=== PATIENT | male | born 1995 | race Two or more races ===

== ENCOUNTER 2017-04-28 17:54 | Emergency (ER) | payer MEDICAID ==
[2017-04-28] MEDS ORDERED: NS 1,000 ML IV ONE (18:47)
--- NOTE | 2017-04-28 18:57 | EDPHY ---
H & P Time Seen by Provider: 04/28/17 18:44 HPI/ROS: HPI Cough, body aches. 21-year-old male by private vehicle. This patient reports a dry cough with body aches for the last 2-3 days. Denies fever. Has had a mild gradual onset headache that comes and goes. No ill contacts. No other complaints. ROS: Constitutional: No fever, no chills. No weakness. Eyes: No discharge. No changes in vision. ENT: No sore throat. No nasal congestion or rhinorrhea. Respiratory: As above. No shortness of breath. Cardiac: No chest pain, no palpitations. Gastrointestinal: No abdominal pain, no vomiting, no diarrhea. Genitourinary: No hematuria. No dysuria or increased frequency with urination. Musculoskeletal: No back pain. No neck pain. As above. Skin: No rashes. Neurological: No headache. No focal weakness or altered sensation. Past medical history: No significant past medical history. Social history: Nonsmoker. Here by himself. Physical Exam: General Appearance: Alert, no distress. This patient is responding to questions appropriately and in full sentences. This patient appears well- hydrated and well-nourished. Eyes: Pupils equal and round no pallor or injection. No lid edema, erythema or injection. ENT, Mouth: Mucous membranes are moist. The pharyngeal tissues are unremarkable. No edema or swelling. No asymmetry suggestive of abscess. No erythema or exudates. No elevation of the tongue. Respiratory: There are no retractions, lungs are clear to auscultation with good air movement bilaterally. Cardiovascular: Regular rate and rhythm. No murmur. Neurological: Motor sensory function is grossly intact. Cranial nerves are normal. Gait is normal. Skin: Warm and dry, no rashes. Musculoskeletal: Neck is supple and nontender. No pain on flexion of the neck. No cervical or submandibular lymphadenopathy. Extremities are symmetrical. All joints range without pain or impingement. Psychiatric: No agitation. No depression. Database: EKG: Imaging: Chest x-ray PA and lateral; the cardiac mediastinal silhouette is unremarkable. No evidence of infiltrate or pneumothorax. Mild bronchitis. No other acute cardiopulmonary disease process noted. Interpreted by me. Procedures: Emergency department course: Chest x-ray and rapid flu obtained. Vital signs reviewed. 7:30 p.m., patient re-evaluated. Vital signs reviewed. Heart rate is now 93. Results of chest x-ray and flu assays discussed with the patient. He feels comfortable going home and I feel he is safe for discharge. I discussed supportive care and ibuprofen dosing. Follow-up was reviewed. All of his questions were answered. He was discharged from the emergency department in good condition. Differential Diagnosis: The differential diagnosis on this patient includes but is not limited to pneumonia, influenza, other viral upper respiratory syndrome. This represents a partial list of diagnoses considered. These considerations are based on history, physical exam, past history, reassessment and diagnostic testing. Smoking Status: Never smoked Constitutional: Initial Vital Signs Temperature (C) 37.2 C 04/28/17 17:59 Heart Rate 101 H 04/28/17 17:59 Respiratory Rate 16 04/28/17 17:59 Blood Pressure 141/73 H 04/28/17 17:59 O2 Sat (%) 95 04/28/17 17:59 O2 Delivery Mode Room Air Allergies/Adverse Reactions: No Known Allergies Allergy (Verified 04/28/17 17:58) Home Medications: Medication Instructions Recorded NK [No Known Home Meds] 03/31/16 Medical Decision Making - Diagnostics Imaging Results: Imaging Impressions Chest X-Ray 04/28/17 18:48 Impression: No pneumonia. - Data Points Laboratory Results: 04/28/17 04/28/17 18:55 18:55 Influenza A & B (PCR) Pending Influenza A,B Rapid Cancelled Departure - Departure Disposition: Home, Routine, Self-Care Clinical Impression: Viral syndrome, Bronchitis Condition: Good Instructions: Acute Bronchitis (ED), Viral Syndrome (ED) Additional Instructions: Read and follow provided instructions. Follow-up with your primary care physician in 1-2 days for re-evaluation. Ibuprofen dosin mg every 6 hours with meals for the next 3 days only. Return to the emergency department for worsening cough, difficulty breathing, high fever or other serious concerns. Get plenty of rest. Keep well hydrated. Drink lots of fluids. Referrals: NONE *PRIMARY CARE P,. [Primary Care Provider] - As per Instructions
[2017-04-28 19:44] VITALS: BP 107/67; PULSE 99; RESP 18; TEMP 98.8; O2SAT 94
== END 2017-04-28 19:44 | disposition home or self-care (01) ==
DX: J40 Bronchitis, not specified as acute or chronic (principal); B34.9 Viral infection, unspecified

== ENCOUNTER 2017-05-04 07:24 | Emergency (ER) | payer MEDICAID ==
--- NOTE | 2017-05-04 08:24 | EDPHY ---
H & P Time Seen by Provider: 05/04/17 07:43 HPI/ROS: Chief complaint. Sore throat HPI. 21-year-old male sore throat for 2 days. No known exposure. Some congestion and some coughing. Slight fever. Occasional strep in the past. No vomiting or diarrhea. No chest discomfort or shortness of breath. It hurts to swallow. ROS Constitutional. no fever/chills, no weakness Eyes. no problems with vision ENT. Nasal congestion sore throat Cardiovascular. no chest pain Respiratory. Slight cough Abdominal. no abdominal pain, no nausea/vomiting, no diarrhea . no problems urinating MS. no calf pain/swelling, no neck/back pain, no joint pain Skin. no rash Lymph. no swollen glands Neuro. no headache, no dizziness, no difficulty walking or with speech Past Medical/Surgical History: Healthy Social History: Single, nonsmoker, no alcohol Smoking Status: Never smoked Physical Exam: General Appearance: Alert well-developed male mild distress vital signs stable Eyes: Pupils equal and round no pallor or injection. ENT, tympanic membranes are normal. Pharynx injected with exudate bilaterally. No evidence for peritonsillar abscess. There is moderate anterior cervical adenopathy Respiratory: There are no retractions, lungs are clear to auscultation. Cardiovascular: Regular rate and rhythm. Gastrointestinal: Abdomen is soft and nontender, no masses, bowel sounds normal. Neurological: Awake and alert, sensory and motor exams grossly normal. Skin: Warm and dry, no rashes. Musculoskeletal: Neck is supple nontender. Extremities symmetrical, full range of motion. Psychiatric: Patient is oriented X 3, there is no agitation. Constitutional: Initial Vital Signs Temperature (C) 37.1 C 05/04/17 07:30 Heart Rate 87 05/04/17 07:30 Respiratory Rate 16 05/04/17 07:30 Blood Pressure 138/90 H 05/04/17 07:30 O2 Sat (%) 95 05/04/17 07:30 O2 Delivery Mode Room Air Allergies/Adverse Reactions: No Known Allergies Allergy (Verified 05/04/17 07:30) Home Medications: Medication Instructions Recorded Penicillin V Potassium [Penicillin 500 mg PO TID #21 tab 05/04/17 VK] Medical Decision Making Procedures: Rapid strep screen negative ED Course/Re-evaluation: Patient is given Decadron and ibuprofen in the emergency department. The patient and I discussed treatment plan including criteria for return importance of follow-up and further evaluation. He expresses understanding and agree Differential Diagnosis: Patient has injected pharynx with exudate bilaterally. No evidence for peritonsillar abscess. The strep is negative however patient's pharynx does look inflamed with purulence. We will treat the patient with Decadron ibuprofen and antibiotics. - Data Points Laboratory Results: 05/04/17 05/04/17 Unknown 07:45 Group A Strep Screen NEGATIVE (NEGATIVE) Group A Strep DNA Pending Departure - Departure Disposition: Home, Routine, Self-Care Clinical Impression: Acute pharyngitis Qualifiers: Pharyngitis/tonsillitis etiology: unspecified etiology Qualified Code(s): J02.9 - Acute pharyngitis, unspecified Condition: Good Instructions: Pharyngitis (ED) Additional Instructions: Drink plenty of fluids and stay hydrated. Ibuprofen 600 mg every 6 hours for discomfort and swelling. Penicillin as antibiotic. Return for worsening symptoms including trouble swallowing and breathing. Recheck at [facility] in 2-3 days if not improving Referrals: NONE *PRIMARY CARE P,. [Primary Care Provider] - As per Instructions [facility] [Outside] - 2-3 days, if not improved Stand Alone Forms: Work Excuse Prescriptions: Penicillin V Potassium [Penicillin VK] 500 mg PO TID #21 tab
[2017-05-04] MEDS ORDERED: DEXAMETHASONE 4 MG TAB PO ONE (08:37)
[2017-05-04] MEDS ORDERED: IBUPROFEN 600 MG TAB PO ONE (08:37)
[2017-05-04 08:56] VITALS: BP 146/84; PULSE 88; RESP 18; TEMP 98.2; O2SAT 92
== END 2017-05-04 08:56 | disposition home or self-care (01) ==
DX: J02.9 Acute pharyngitis, unspecified (principal)

== ENCOUNTER 2017-05-06 16:58 | Emergency (ER) | payer MEDICAID ==
--- NOTE | 2017-05-06 17:32 | EDPHY ---
H & P Time Seen by Provider: 05/06/17 17:09 HPI/ROS: Chief complaint. Sore throat HPI. 21-year-old male presents emergency department with 1 week sore throat. Seen 2 days ago in the emergency department with negative strep screen. Started on penicillin. Pain continues. Painful to swallow but swallowing secretions. Speaking in full sentences. Low-grade fever. Not better after 2 days of penicillin so here for re-evaluation. No cough, chest pain, shortness of breath ROS Constitutional. Fever Eyes. no problems with vision ENT. Sore throat Cardiovascular. no chest pain Respiratory. no shortness of breath, no cough Abdominal. no abdominal pain, no nausea/vomiting, no diarrhea . no problems urinating MS. no calf pain/swelling, no neck/back pain, no joint pain Skin. no rash Lymph. no swollen glands Neuro. no headache, no dizziness, no difficulty walking or with speech Past Medical/Surgical History: Healthy Social History: Single, nonsmoker, no alcohol Smoking Status: Never smoked Physical Exam: General Appearance: Alert well-developed male mild distress vital signs are stable. Mild tachycardia at 1:03 a.m. Eyes: Pupils equal and round no pallor or injection. ENT, pharynx injected without exudate. No evidence for peritonsillar abscess. No stridor. Swallowing secretions. Speaking in full sentences Respiratory: There are no retractions, lungs are clear to auscultation. Cardiovascular: Regular rate and rhythm. Gastrointestinal: Abdomen is soft and nontender, no masses, bowel sounds normal. Neurological: Awake and alert, sensory and motor exams grossly normal. Skin: Warm and dry, no rashes. Musculoskeletal: Neck is supple nontender. Extremities symmetrical, full range of motion. Psychiatric: Patient is oriented X 3, there is no agitation. Constitutional: Initial Vital Signs Temperature (C) 37.2 C 05/06/17 17:00 Heart Rate 103 H 05/06/17 17:00 Respiratory Rate 20 05/06/17 17:00 Blood Pressure 135/87 H 05/06/17 17:00 O2 Sat (%) 95 05/06/17 17:00 O2 Delivery Mode Room Air Allergies/Adverse Reactions: No Known Allergies Allergy (Verified 05/04/17 07:30) Home Medications: Medication Instructions Recorded Penicillin V Potassium [Penicillin 500 mg PO TID #21 tab 05/04/17 VK] Medical Decision Making Procedures: IV normal saline with 2 L saline. Decadron 10 mg IV. Fentanyl 50 mg IV. ED Course/Re-evaluation: Re-evaluation 730 pm--patient feels much better. He is swallowing without difficulty. He is breathing and speaking in full sentences. No stridor. Patient and I discussed treatment plan including criteria for return importance of follow-up and further evaluation. He expresses understanding and agreement Differential Diagnosis: I considered epiglottitis, peritonsillar abscess. This may be viral in etiology. - Data Points Laboratory Results: Laboratory Results 05/06/17 17:41 05/06/17 17:41 05/06/17 05/06/17 17:41 17:41 WBC 11.99 10^3/uL H 10^3/uL (3.80-9.50) RBC 5.33 10^6/uL 10^6/uL (4.40-6.38) Hgb 15.5 g/dL g/dL (13.7-17.5) Hct 45.4 % % (40.0-51.0) MCV 85.2 fL fL (81.5-99.8) MCH 29.1 pg pg (27.9-34.1) MCHC 34.1 g/dL g/dL (32.4-36.7) RDW 12.5 % % (11.5-15.2) Plt Count 212 10^3/uL 10^3/uL (150-400) MPV 9.9 fL fL (8.7-11.7) Neut % (Auto) 54.7 % % (39.3-74.2) Lymph % (Auto) 34.6 % % (15.0-45.0) Wirt % (Auto) 8.2 % % (4.5-13.0) Eos % (Auto) 1.0 % % (0.6-7.6) Baso % (Auto) 0.8 % % (0.3-1.7) Nucleat RBC Rel Count 0.0 % % (0.0-0.2) Absolute Neuts (auto) 6.57 10^3/uL H 10^3/uL (1.70-6.50) Absolute Lymphs (auto) 4.15 10^3/uL H 10^3/uL (1.00-3.00) Absolute Monos (auto) 0.98 10^3/uL H 10^3/uL (0.30-0.80) Absolute Eos (auto) 0.12 10^3/uL 10^3/uL (0.03-0.40) Absolute Basos (auto) 0.09 10^3/uL 10^3/uL (0.02-0.10) Absolute Nucleated RBC 0.00 10^3/uL 10^3/uL (0-0.01) Immature Gran % 0.7 % % (0.0-1.1) Seg Neutrophils % 61 % % Lymphocytes % 35 % % Monocytes % 2 % % Eosinophils % 2 % % Immature Gran # 0.08 10^3/uL 10^3/uL (0.00-0.10) Absolute Seg Neuts 7.31 10^/uL H 10^/uL (1.70-6.50) Absolute Lymphocytes 4.20 10^3/uL H 10^3/uL (1.00-3.00) Absolute Monocytes 0.24 10^3/uL L 10^3/uL (0.30-0.80) Absolute Eosinophils 0.24 10^3/uL 10^3/uL (0.03-0.40) RBC/WBC/PLT Morphology NORMAL (NORMAL) Atypical Lymphocytes 1+ H Platelet Estimate ADEQUATE (ADEQ) Sodium 138 mEq/L mEq/L (134-144) Potassium 4.4 mEq/L mEq/L (3.5-5.2) Chloride 104 mEq/L mEq/L (97-110) Carbon Dioxide 24 mEq/l mEq/l (22-31) Anion Gap 10 mEq/L mEq/L (8-16) BUN 12 mg/dL mg/dL (7-23) Creatinine 0.8 mg/dL mg/dL (0.7-1.3) Estimated GFR > 60 Glucose 93 mg/dL mg/dL (70-100) Calcium 9.1 mg/dL mg/dL (8.5-10.4) Medications Given: Discontinued Medications Dexamethasone (Decadron Injection) 10 mg IVP EDNOW ONE Stop: 05/06/17 17:42 Last Admin: 05/06/17 18:19 Dose: 10 mg Fentanyl (Sublimaze) 50 mcg IVP EDNOW ONE Stop: 05/06/17 17:43 Last Admin: 05/06/17 18:19 Dose: 50 mcg Sodium Chloride (Ns) 1,000 mls @ 0 mls/hr IV ONCE ONE; Wide Open PRN Reason: Protocol Stop: 05/06/17 17:42 Last Admin: 05/06/17 18:19 Dose: 1,000 mls Sodium Chloride (Ns) 1,000 mls @ 0 mls/hr IV ONCE ONE; Wide Open PRN Reason: Protocol Stop: 05/06/17 17:42 Last Admin: 05/06/17 18:19 Dose: 1,000 mls Departure - Departure Disposition: Home, Routine, Self-Care Clinical Impression: Acute pharyngitis Condition: Good Instructions: Pharyngitis (ED) Additional Instructions: Frequent, small sips fluids. Gradual diet advancement. Ibuprofen 600 mg every 6 hours for discomfort. Continue the penicillin until finished. Return for worsening symptoms. Referrals: [facility] [Other] - 2-3 days, if not improved
[2017-05-06] MEDS ORDERED: NS 1,000 ML IV ONE ×2 (17:41)
[2017-05-06] MEDS ORDERED: DEXAMETHASONE 10 MG/ML VIAL IVP ONE (17:41)
[2017-05-06] MEDS ORDERED: fentaNYL 100 MCG/2 ML INJ IVP ONE (17:42)
[2017-05-06 18:27] LABS: % IMMATURE GRANULYOCYTES 0.7 % (0.0-1.1); ABSOLUTE IMMATURE GRANULOCYTES 0.08 10^3/uL (0.00-0.10); ADD DIFF? NO; ADD MORPH? NO; ADD SCAN? YES; FRAGMENT RBC FLAG 0 (0-99); HEMATOCRIT 45.4 % (40.0-51.0); HEMOGLOBIN 15.5 g/dL (13.7-17.5); LEFT SHIFT FLG 0 (0-99); LIPEMIA HEMOLYSIS FLAG 90 (0-99); MEAN CELL HEMOGLOBIN 29.1 pg (27.9-34.1); MEAN CELL HEMOGLOBIN CONCENTR. 34.1 g/dL (32.4-36.7); MEAN CELL VOLUME 85.2 fL (81.5-99.8); MEAN PLATELET VOLUME 9.9 fL (8.7-11.7); PLATELET CLUMPS FLAG 0 (0-99); PLATELET COUNT 212 10^3/uL (150-400); RED BLOOD CELL COUNT 5.33 10^6/uL (4.40-6.38); RED CELL DISTRIBUTION WIDTH 12.5 % (11.5-15.2)
[2017-05-06 18:33] LABS: ATYPICAL LYMPHOCYTE FLAG 250 (0-99)
[2017-05-06 18:46] LABS: ANION GAP 10 mEq/L (8-16); CALCIUM 9.1 mg/dL (8.5-10.4); CARBON DIOXIDE 24 mEq/l (22-31); CHLORIDE 104 mEq/L (97-110); CREATININE 0.8 mg/dL (0.7-1.3); GLOMERULAR FILTRATION RATE > 60; GLUCOSE 93 mg/dL (70-100); POTASSIUM 4.4 mEq/L (3.5-5.2); SODIUM 138 mEq/L (134-144)
[2017-05-06 19:21] LABS: SCAN POSITIVE
[2017-05-06 19:24] LABS: PLATELET ESTIMATE ADEQUATE (ADEQ)
[2017-05-06 19:52] VITALS: BP 120/67; PULSE 75; RESP 16; TEMP 98.6; O2SAT 93
== END 2017-05-06 19:52 | disposition home or self-care (01) ==
DX: J02.9 Acute pharyngitis, unspecified (principal)
CPT/HCPCS: 96374; J3010